=== PATIENT | male | born 1940 | race Caucasian/White ===

== ENCOUNTER 2020-05-31 06:48 | Day surgery (SDC) | payer MEDICARE ==
[~2020-05-31] VITALS: Ht 177.8 cm; Wt 74.0 kg
[2020-05-31] MEDS ORDERED: LAMO25 PO (07:31)
[2020-05-31] MEDS ORDERED: OMEP20ER PO (07:32)
== END 2020-05-31 09:20 | disposition home or self-care (01) ==
LOC: ORSCSDS 06:48
DX: Z12.11 Encounter for screening for malignant neoplasm of colon (principal); Z86.010 Personal history of colon polyps; D12.3 Benign neoplasm of transverse colon; D12.0 Benign neoplasm of cecum; D12.4 Benign neoplasm of descending colon; D12.2 Benign neoplasm of ascending colon; K64.8 Other hemorrhoids; Z79.899 Other long term (current) drug therapy; Z87.891 Personal history of nicotine dependence; K21.9 Gastro-esophageal reflux disease without esophagitis
CPT/HCPCS: 88305; J0330; J0461; J2405; J2704; J7120

== ENCOUNTER 2021-12-15 08:39 | Day surgery (SDC) | payer MEDICARE ==
[~2021-12-15] VITALS: Ht 177.8 cm; Wt 76.2 kg
[~2021-12-15 08:39] MED LIST: FOSAMAX PLUS D1 EACH PO; IPRATROPIUM BRO30 ML; LAMO25 PO; OMEP20ER PO
== END 2021-12-15 10:43 | disposition home or self-care (01) ==
LOC: ORSCSDS 08:39
PROVIDERS: Ophthalmology
PROC: 08DJ3ZZ Extraction of Right Lens, Percutaneous Approach (ICD-10-PCS; principal; 2021-12-15 10:00)
DX: H25.11 Age-related nuclear cataract, right eye (principal); Z96.1 Presence of intraocular lens; R01.1 Cardiac murmur, unspecified; K21.9 Gastro-esophageal reflux disease without esophagitis; F17.210 Nicotine dependence, cigarettes, uncomplicated; Z79.899 Other long term (current) drug therapy
CPT/HCPCS: J2001; J2250; J3010; J3301; J7040; V2632

== ENCOUNTER → 2022-05-05 | Outpatient (CLI) | payer MEDICARE | LOC: LAB SHORT 07:35 → LAB 07:35 | DX: D23.22 Other benign neoplasm of skin of left ear and external auricular canal (principal) | CPT/HCPCS: 88304 ==

== ENCOUNTER 2023-11-28 08:18 | Day surgery (SDC) | payer MEDICARE ==
[~2023-11-28] VITALS: Ht 177.8 cm; Wt 77.5 kg
[2023-11-28] VITALS (15 sets, daily range): BP systolic 113–159; BP diastolic 66–95
[~2023-11-28 08:18] MED LIST changes: +Lactated Ringer's 1,000 ML IV SCH
--- NOTE | 2023-11-28 09:02 | NUR ---
History, Chart, Medications and Allergies reviewed before start of procedure. Patient states colon prep results clear. Patient confirms NPO status and agrees with scheduled surgery. Patient States Post-Procedure ride home has been arranged. Lungs clear T/O to Auscultation.
[2023-11-28] MEDS ORDERED: propofoL 20 ML IV ONE (09:20)
--- NOTE | 2023-11-28 10:03 | NUR ---
REPORT RECEIVED FROM CORRINE HARO. VSS. PT ON RA. PT ABLE TO REPOSITION SELF IN BED. PT REQUESTING PO FLUIDS AND TOLERATING THEM WELL. PT DENIES PAIN, NAUSEA OR OTHER DISCOMFORTS.
--- NOTE | 2023-11-28 10:19 | NUR ---
Patient up to Ambulate independently. Gait steady. VSS AND CONSISTENT WITH PT BASELINE. PT HAS NO COMPLAINTS AND VERBALIZES READINESS TO GO HOME. Discharge instructions reviewed with patient AND HIS . Patient verbalizes understanding. Copy given to patient to take home. Patient States Post-Procedure ride home has been arranged. Discharged via wheelchair to private car for ride home. PT BELONGINGS RETURNED TO PT.
--- NOTE | 2023-11-28 10:47 | NUR ---
11/28/23 [id number] Arron Fernandes CONFIRMED AND REVIEWED H&P, MEDCICATIONS, ALLERGIES, MEDICAL HISTORY, RESPIRATORY HISTORY, VITAL SIGNS, 3-LEAD EKG, CONSENTS, AND PHYSICIAN ORDERS. PATIENT CONFIRMS NPO STATUS AND AGREES WITH SCHEDULED PROCEDURE. MONITOR INTACT WITH CONTINUOUS PULSE OXIMETRY, CAPNOGRAPHY, 3-LEAD EKG, INTERMITTENT BP. SUPPLEMENTAL O2 TO BE TITRATED THROUGHOUT PROCEDURE TO MAINTAIN O2 SATURATION ABOVE 90%. PATIENT DETERMINED TO BE ASA APPROPRIATE FOR PROPOFOL SEDATION PRIOR TO START OF PROCEDURE BY DR. MULLIGAN
== END 2023-11-28 10:22 | disposition home or self-care (01) ==
LOC: ORSCMMR 08:18 → ORD 09:30 → ORSCMMR 10:22
PROVIDERS: Internal Medicine Gastroenterology
PROC: 0DJD8ZZ Inspection of Lower Intestinal Tract, Via Natural or Artificial Opening Endoscopic (ICD-10-PCS; principal; 2023-11-28 09:30)
DX: Z12.11 Encounter for screening for malignant neoplasm of colon (principal); Z86.0101 Personal history of adenomatous and serrated colon polyps; D47.2 Monoclonal gammopathy; K21.9 Gastro-esophageal reflux disease without esophagitis; Z79.899 Other long term (current) drug therapy
CPT/HCPCS: J2704; J7120